=== PATIENT | female | born 2000 | race Caucasian/White ===

== ENCOUNTER 2020-08-20 16:47 | Emergency (ER) | payer OTHER ==
[~2020-08-20 16:47] MED LIST: BACTRIM DS TAB1 EACH PO; COLACE 100MG C100 MG PO; IBUPROFEN600 MG PO; LORTAB 5-325 M1 EACH PO; ZANTAC150 MG PO
== END 2020-08-20 18:03 | disposition home or self-care (01) ==
LOC: ER1 16:47
DX: B34.9 Viral infection, unspecified (principal); F17.200 Nicotine dependence, unspecified, uncomplicated; Z20.822 Contact with and (suspected) exposure to COVID-19
CPT/HCPCS: 71045; 99285; U0003

== ENCOUNTER 2021-09-18 11:45 | Emergency (ER) | payer OTHER | END 2021-09-18 12:36 | disposition home or self-care (01) | LOC: ER1 11:45 | DX: R51.9 Headache, unspecified (principal); Z20.822 Contact with and (suspected) exposure to COVID-19; F17.200 Nicotine dependence, unspecified, uncomplicated | CPT/HCPCS: 99283 ==

== ENCOUNTER → 2022-04-29 | Outpatient (CLI) | payer OTHER | LOC: RAD 14:50 | DX: M54.2 Cervicalgia (principal); M54.6 Pain in thoracic spine; M54.50 Low back pain, unspecified; R05.9 Cough, unspecified; M48.56XA Collapsed vertebra, not elsewhere classified, lumbar region, initial encounter for fracture | CPT/HCPCS: 71046; 72050; 72072; 72110 ==